=== PATIENT | male | born 1980 | race Caucasian/White ===

== ENCOUNTER 2022-06-15 11:57 | Emergency (ER) | payer MEDICAID ==
[~2022-06-15] VITALS: Ht 172.7 cm; Wt 75.0 kg
[2022-06-15] MEDS ORDERED: BACITRACIN ZINC OINT UDPKT TOP ONE (17:30)
[2022-06-15] MEDS ORDERED: BO1 TP (18:12)
[2022-06-15] MEDS ORDERED: IBUP-2029 MT (18:12)
[2022-06-15 19:05] VITALS: BP 134/82
== END 2022-06-15 19:07 | disposition home or self-care (01) ==
LOC: ER 12:18
DX: S70.02XA Contusion of left hip, initial encounter (principal); W18.39XA Other fall on same level, initial encounter; Y93.89 Activity, other specified; Y92.89 Other specified places as the place of occurrence of the external cause; Y99.8 Other external cause status; M25.562 Pain in left knee; M79.18 Myalgia, other site
CPT/HCPCS: 72170; 73562; 99284